=== PATIENT | male | born 1955 | race Caucasian/White ===

== ENCOUNTER 2021-11-26 14:52 | Inpatient (IN) | payer MEDICARE, BC ==
[2021-11-26] MEDS ORDERED: Sodium Chloride 0.9% 10 ML Syringe FLUSH PRN (15:17)
[2021-11-26] MEDS ORDERED: Diltiazem 25 MG/5 ML SDV IVPUSH ONE (15:19)
[2021-11-26] MEDS ORDERED: Diltiazem 100 MG in Sodium Chloride 0.9% 100 ML IV SCH (15:30)
[2021-11-26 16:08] LABS: TROPONIN I HIGH SENSITIVITY 62.2 pg/mL (<=60.3)
[2021-11-26] MEDS ORDERED: LORazepam 2 MG/ML SDV IVPUSH PRN (17:05)
[2021-11-26] MEDS ORDERED: Ondansetron 4 MG Tab.DIS PO PRN (17:05)
[2021-11-26] MEDS ORDERED: Acetaminophen/HYDROcodone 325-5 MG Tab PO PRN (17:05)
[2021-11-26] MEDS ORDERED: Magnesium Hydroxide 400 MG/5 ML Susp 30 ML Cup PO PRN (17:05)
[2021-11-26 17:13] LABS: CORONAVIRUS COVID-19 NAA NEGATIVE (NEGATIVE)
[2021-11-26] MEDS ORDERED: Non-Formulary Medication 1 Each (Insulin Aspart [Novolog Flexpen] 100 UNIT/ML Insuln.Pen) SQ SCH (17:15)
[2021-11-26] MEDS ORDERED: cefTRIAXone 1 GM in Sodium Chloride 0.9% 50 ML IV SCH (18:00)
[2021-11-26] MEDS ORDERED: Glimepiride 2 MG Tab PO SCH (21:00)
[2021-11-26] MEDS: Carvedilol 12.5 MG Tab PO SCH (21:18)
[2021-11-26] MEDS: guaiFENesin 600 MG Tab.ER PO SCH (21:27)
[2021-11-26] MEDS ORDERED: Rosuvastatin 10 MG Tab PO SCH (21:30)
[2021-11-26] MEDS: Insulin Lispro 100 Unit/ML 3 ML KwikPen SUBCUT SCH (21:32)
[2021-11-27] MEDS: Acetaminophen 325 MG Tab PO PRN ×2 (03:59→08:13)
[2021-11-27] MEDS: Insulin Lispro 100 Unit/ML 3 ML KwikPen SUBCUT SCH (07:13)
[2021-11-27] MEDS: guaiFENesin 600 MG Tab.ER PO SCH (08:08)
[2021-11-27] MEDS: Carvedilol 12.5 MG Tab PO SCH (08:09)
[2021-11-27] MEDS ORDERED: Diltiazem 120 MG Cap.CD PO SCH (09:00)
[2021-11-27] MEDS ORDERED: Insulin Glargine,Human Rec. Analog 100 Units/ML 3 ML Pen SUBCUT SCH (09:00)
[2021-11-27] MEDS ORDERED: Rosuvastatin 10 MG Tab PO SCH (09:00)
[2021-11-27] MEDS ORDERED: Azithromycin 250 MG Tab PO ONE (10:00)
[2021-11-27 12:39] LABS: HEMOGLOBIN A1C 6.9 % (4.5-6.2)
[2021-11-27] MEDS ORDERED: Warfarin 5 MG Tab PO SCH (13:00)
[2021-12-02] MEDS ORDERED: Warfarin 5 MG Tab PO SCH (13:00)
== END 2021-11-27 11:35 | disposition home or self-care (01) | DRG 310 ==
LOC: JP.ED 14:52 → JP.ICU 16:30
PROVIDERS: ADMIT Hospitalist; ATTEND Hospitalist
DX: I48.91 Unspecified atrial fibrillation (principal); I10 Essential (primary) hypertension; E78.5 Hyperlipidemia, unspecified; E11.9 Type 2 diabetes mellitus without complications; J32.9 Chronic sinusitis, unspecified; I25.10 Atherosclerotic heart disease of native coronary artery without angina pectoris; E78.00 Pure hypercholesterolemia, unspecified; Z20.822 Contact with and (suspected) exposure to COVID-19; K21.9 Gastro-esophageal reflux disease without esophagitis; Z96.659 Presence of unspecified artificial knee joint; R77.8 Other specified abnormalities of plasma proteins; F41.9 Anxiety disorder, unspecified; Z85.46 Personal history of malignant neoplasm of prostate; Z95.1 Presence of aortocoronary bypass graft; Z79.4 Long term (current) use of insulin; Z79.01 Long term (current) use of anticoagulants; Z79.899 Other long term (current) drug therapy; Z87.891 Personal history of nicotine dependence; Z88.1 Allergy status to other antibiotic agents; Z88.8 Allergy status to other drugs, medicaments and biological substances
CPT/HCPCS: 0241U; 36415; 71045; 71045-26; 80053; 83036; 83605; 83735; 84484; 85025; 85027; 85610; 93005; 93010; 96365; 96376; 99284; 99285-25; A9270-GY; J0696; J1815-GY; J3490